=== PATIENT | female | born 1955 ===

== ENCOUNTER → 2018-09-12 20:44 | Outpatient (REF) | payer OTHER, SELFPAY ==
[2018-09-12 21:40] LABS: Cholesterol 220 mg/dL (140-199); Glucose 96 mg/dL (80-110); HDL Cholesterol 53 mg/dL (40-60); LDL Cholesterol Calculated 148 mg/dL (<100); Triglycerides 97 mg/dL (35-150)
[2018-09-12 22:42] LABS: Hemoglobin A1C% w Est Avg Glu 5.9 % (4.0-6.0)
== END ==
LOC: LAB 20:44
PROVIDERS: Visit Provider Naturopath
DX: R74.0 Nonspecific elevation of levels of transaminase and lactic acid dehydrogenase [LDH] (principal)
CPT/HCPCS: 36415; 80061; 82947; 83036